=== PATIENT | male | born 1985 | race Caucasian/White ===

== ENCOUNTER 2024-11-22 12:34 | Emergency (ER) | payer BC ==
[2024-11-22 12:47] VITALS: O2SAT 100
--- NOTE | 2024-11-22 12:52 | ERPHSYRPT ---
- History of Present Illness Time Seen by Provider: 11/22/24 12:41 Source: patient Exam Limitations: no limitations Physician History: Pt states he was using a chain saw at home about 1 hour ago and it cut his right ring finger when it kicked back with resultant pain. Last tetanus immunization is over 5 years. Allergies/Adverse Reactions: No Known Drug Allergies Allergy (Verified 11/22/24 12:47) Home Medications: No Reportable Medications [No Reported Medications] 11/22/24 [History] - Review of Systems Musculoskeletal: Injury (right ring finger injury today) - Nursing Vital Signs Nursing Vital Signs: Initial Vital Signs Temperature 99.2 F 11/22/24 12:41 Pulse Rate 126 H 11/22/24 12:41 Respiratory Rate 22 11/22/24 12:41 Blood Pressure 120/76 11/22/24 12:41 O2 Sat by Pulse Oximetry 100 11/22/24 12:41 Pain Scale Pain Intensity 10 - Physical Exam General Appearance: alert Shoulder Exam: normal ROM Elbow/Forearm Exam: normal ROM Wrist Exam: normal ROM Hand Exam: laceration (3 cm x 1.5 cm laceration with partial amputation of the distal phalanx of the right ring finger) Neuro/Tendon Exam: normal sensation Skin Exam: No cyanosis - Radiology Exams Right Hand X-ray Interpretation: Discussed w/ radiologist (See report) Ordered Tests: Active Orders 24 hr Category Date Time Status IV Insertion STAT Care 11/22/24 12:46 Active HAND (MINIMUM 3 VIEWS) Stat Exams 11/22/24 12:47 Completed Medication Summary Generic Name Dose Route Start Last Admin Trade Name Freq PRN Reason Stop Dose Admin Sodium Chloride 1,000 mls @ 100 mls/hr 11/22/24 13:00 11/22/24 13:15 Sodium Chloride 0.9% 1000 Ml IV 12/22/24 12:59 100 mls/hr .Q10H KEVIN Administration Discontinued Medications Generic Name Dose Route Start Last Admin Trade Name Freq PRN Reason Stop Dose Admin Diphtheria/Tetanus/Acell Pertussis 0.5 ml 11/22/24 12:52 11/22/24 13:19 Tdap --Diph,Pertuss(Acell),Tet Vac/Pf 0.5 Ml Vial IM 11/22/24 12:53 0.5 ml .ONCE ONE Administration Diphtheria/Tetanus/Acell Pertussis Confirm 11/22/24 13:09 Tdap --Diph,Pertuss(Acell),Tet Vac/Pf 0.5 Ml Vial Administered 11/22/24 13 :10 Dose 0.5 ml IM .STK-MED ONE Clindamycin HCl/Dextrose 600 mg in 50 mls @ 100 mls/hr 11/22/24 12:47 11/22/24 14:12 Clindamycin-D5w 600 Mg/50 Ml IV 11/22/24 13:16 Infused STAT STA Infusion Clindamycin HCl/Dextrose Confirm 11/22/24 13:08 Clindamycin-D5w 600 Mg/50 Ml Administered 11/22/24 13:09 Dose 600 mg in 50 mls @ ud IV .STK-MED ONE Lidocaine/Epinephrine Confirm 11/22/24 13:55 Lidocaine Hcl/Epinephrine 1% 20 Ml Administered 11/22/24 13:56 Dose 20 ml .ROUTE .STK-MED ONE Morphine Sulfate 4 mg 11/22/24 12:46 11/22/24 13:17 Morphine Sulfate 4 Mg/Ml Injection IV 11/22/24 12:47 4 mg STAT ONE Administration Morphine Sulfate Confirm 11/22/24 13:08 Morphine Sulfate 4 Mg/Ml Injection Administered 11/22/24 13:09 Dose 4 mg .ROUTE .STK-MED ONE Ondansetron HCl 4 mg 11/22/24 12:46 11/22/24 13:18 Ondansetron Hcl 4 Mg/2 Ml Vial IV 11/22/24 12:47 4 mg STAT ONE Administration Ondansetron HCl Confirm 11/22/24 13:08 Ondansetron Hcl 4 Mg/2 Ml Vial Administered 11/22/24 13:09 Dose 4 mg .ROUTE .STK-MED ONE - Progress Progress: unchanged Will see patient in: other (Dr. Ram will take pt to surgery at [facility] today.) Counseled pt/family regarding: diagnosis, rad results Medical Desision Making - Diagnostic Testing Diagnostic test were ordered, analyzed, and reviewed by me: Yes Radiological Interpretation: Discussed w/ radiologist - Departure Departure Disposition: Observation Clinical Impression: Laceration of right ring finger, Paretial amputation right ring finger Condition: Stable Critical Care Time: No Referrals: DOCTOR,NO FAMILY [Primary Care Provider] - Follow up/PCP as directed
[2024-11-22] MEDS ORDERED: CLINDAMYCIN-D5W 600 MG/50 ML*** 600 MG/50 ML BAG IV ONE (13:08)
[2024-11-22] MEDS ORDERED: MORPHINE SULFATE 4 MG INJ ONE ×2 (13:08→14:17)
[2024-11-22] MEDS ORDERED: Sodium Chloride 0.9% 1000 ML 1,000 ML ONE (13:08)
[2024-11-22] MEDS ORDERED: Zofran 4 MG/2 ML VIAL ONE (13:08)
[2024-11-22] MEDS ORDERED: Adacel Vial IM ONE (13:09)
[2024-11-22] MEDS: Sodium Chloride 0.9% 1000 ML 1,000 ML IV SCH (13:15)
[2024-11-22] MEDS: MORPHINE SULFATE 4 MG INJ IV ONE ×2 (13:17→14:18)
[2024-11-22] MEDS: Zofran 4 MG/2 ML VIAL IV ONE (13:18)
[2024-11-22] MEDS: Adacel Vial IM ONE (13:19)
[2024-11-22] MEDS: CLINDAMYCIN-D5W 600 MG/50 ML*** 600 MG/50 ML BAG IV STA (13:22)
--- NOTE | 2024-11-22 13:42 | XRAY ---
Indication: Chainsaw injury. Comparison: None 3 view right hand demonstrates partial soft tissue and partial bony amputation distal phalanx 4th finger. Old 5th metacarpal fracture. No other bony, articular, or soft tissue abnormalities.
[2024-11-22] MEDS ORDERED: XYLOCAINE 1%/Epi 1:100000 MDV 20 ML ONE (13:55)
[2024-11-22 14:15] VITALS: BP 122/75; PULSE 88; RESP 20; TEMP 98
[2024-11-22] MEDS ORDERED: Xylocaine 1% Vial 30 ML PF IJ ONE (14:35)
[2024-11-22] MEDS ORDERED: Marcaine Mpf 0.5% Vial 30 Ml ONE (14:35)
--- NOTE | 2024-11-25 12:35 | OP ---
SURGERY DATE/TIME: 11/22/2024 [id number] PREOPERATIVE DIAGNOSIS: Traumatic amputation, tip of right ring finger. POSTOPERATIVE DIAGNOSIS: Traumatic amputation, tip of right ring finger. PROCEDURE: Revision and closure amputation, right ring finger. SURGEON: Antony Ram II, DO ANESTHESIA: Local utilizing a 50/50 mixture of 1% Xylocaine plain and 0.5% Marcaine plain, a total of 7 mL utilized via a ring metacarpal block. DESCRIPTION OF PROCEDURE AND FINDINGS: The patient was identified and informed consent was obtained. The patient was taken to the operative suite and placed in a supine position on the operating table. The right upper extremity was then prepped and draped in the usual sterile fashion, and a standard time-out was taken. The finger had been previously blocked with a local anesthetic as noted above. A Anushka drain was utilized to exsanguinate the finger and also as a tourniquet. Following this, the finger was debrided. A few small shards of bone were removed as was a very small piece of the remaining patient's nail bed. The articular surface of the middle phalanx was decorticated to good cancellous bone, shaping this square across the top. The skin and subcutaneous tissue was slightly mobilized with deep dissection along the bone. Following this, the flap was brought over and closed. The dog leg was excised as the closure was finished. Excellent repair was noted with good soft tissue coverage over the entire amputation. The tourniquet was released. Good capillary refill was noted. A big, bulky, sterile dressing was then applied. The patient was then transferred to the cart and taken to the recovery room in satisfactory condition having tolerated the procedure well.
== END 2024-11-22 15:56 | disposition home or self-care (01) ==
LOC: ED 12:34
DX: S68.614A Complete traumatic transphalangeal amputation of right ring finger, initial encounter (principal); W29.3XXA Contact with powered garden and outdoor hand tools and machinery, initial encounter; Y92.007 Garden or yard of unspecified non-institutional (private) residence as the place of occurrence of the external cause
CPT/HCPCS: 26952; 73130; 90471; 90715; 96365; 96374; 96375; 96376; 99284; J2270; J2405